=== PATIENT | female | born 1975 | race American Indian/Alaskan Native ===

== ENCOUNTER 2019-01-16 17:38 | Emergency (ER) | payer OTHER ==
--- NOTE | 2019-01-16 17:51 | Emergency Department Report ---
Blank Doc - Documentation Documentation: 43 Y/O FEMALE PRESENTS WITH SUDDEN ONSET OF MODERATE SEVERE RIGHT LOWER LEG PA IN. NO EDEMA OR TRAUMA. NO FEVER. NO CHEST PAIN. + SOMKER PLAN ACC AND EVALUATE FOR LABS AND US NEEDS.
--- NOTE | 2019-01-16 18:59 | Vascular Lab Report ---
PROCEDURE: VL VENOUS DUPLEX LE RT TECHNIQUE: Duplex Doppler sonography of the right . Garces scale imaging with and without compression, spectral waveform analysis with and without augmentation, and color flow Doppler were employed. HISTORY: RT.LEG PAIN COMPARISONS: None FINDINGS: Real-time ultrasound of the right leg was performed using grayscale and color Doppler image s. These images demonstrate no evidence of deep venous thrombus in the right common femoral vein, superf icial femoral vein, popliteal vein or posterior tibial vein. IMPRESSION: No DVT in right leg This document is electronically signed by Michael Crisostomo MD., January 16 2019 06:57:27 PM ET
[2019-01-16] MEDS ORDERED: NORCO 5/325 PO ONE (20:44)
--- NOTE | 2019-01-16 21:32 | Emergency Department Report ---
ED Lower Extremity HPI - General Chief Complaint: Extremity Injury, Lower Stated Complaint: R LEG PAIN Time Seen by Provider: 01/16/19 17:48 Source: patient Mode of arrival: Wheelchair Limitations: No Limitations - History of Present Illness Initial Comments: pt is a 43 y/o aaf who presents for right calf pain s/p fall at home pain is 5/10 sharp shooting radiating from calf to right foot, pain is exacerbated by palpation and ambulation. MD Complaint: other (right leg pain s/p fall yesterday ) Onset/Timin -: days(s) Injury: Leg: Right (posterior calf ) Type of Injury: blunt, hyperextension Place: home Severity: moderate Severity scale (0 -10): 6 Improves With: nothing Worsens With: nothing Context: fall Associated Symptoms: snap/pop sensation, unable to bear weight - Related Data Previous Rx's Medication Instructions Recorded Last Taken Type Cyclobenzaprine [Flexeril] 10 mg PO TID PRN #30 tablet 01/16/19 Unknown Rx Menthol/Camphor [[place] 1 applicatio TP QID PRN #1 tube 01/16/19 Unknown Rx Ointment] Naproxen [Naprosyn] 500 mg PO BID PRN #30 tablet 01/16/19 Unknown Rx Allergies Allergy/AdvReac Type Severity Reaction Status Date / Time No Known Allergies Allergy Unverified 01/16/19 17:40 ED Review of Systems ROS: Stated complaint: R LEG PAIN Other details as noted in HPI Constitutional: denies: chills, fever Eyes: denies: eye pain, eye discharge, vision change ENT: denies: ear pain, throat pain Respiratory: denies: cough, shortness of breath, wheezing Cardiovascular: denies: chest pain, palpitations Endocrine: no symptoms reported Gastrointestinal: denies: abdominal pain, nausea, diarrhea Genitourinary: denies: urgency, dysuria, discharge Musculoskeletal: other (right posterior calf pain ). denies: back pain, joint swelling, arthralgia Skin: denies: rash, lesions Neurological: denies: headache, weakness, paresthesias Psychiatric: denies: anxiety, depression Hematological/Lymphatic: denies: easy bleeding, easy bruising ED Past Medical Hx - Past Medical History Previous Medical History?: No - Surgical History Past Surgical History?: No - Social History Smoking Status: Current Every Day Smoker Substance Use Type: Alcohol - Medications Home Medications: Home Medications Medication Instructions Recorded Confirmed Last Taken Type Cyclobenzaprine [Flexeril] 10 mg PO TID PRN #30 tablet 01/16/19 Unknown Rx Menthol/Camphor [[place] 1 applicatio TP QID PRN #1 tube 01/16/19 Unknown Rx Ointment] Naproxen [Naprosyn] 500 mg PO BID PRN #30 tablet 01/16/19 Unknown Rx ED Physical Exam - General Limitations: No Limitations General appearance: alert, in no apparent distress - Head Head exam: Present: atraumatic, normocephalic - Eye Eye exam: Present: normal appearance, PERRL, EOMI Pupils: Present: normal accommodation - ENT ENT exam: Present: mucous membranes moist - Neck Neck exam: Present: normal inspection - Respiratory Respiratory exam: Present: normal lung sounds bilaterally. Absent: respiratory distress, wheezes, stridor - Cardiovascular Cardiovascular Exam: Present: regular rate, normal rhythm, normal heart sounds. Absent: systolic murmur, diastolic murmur, rubs, gallop - GI/Abdominal GI/Abdominal exam: Present: soft. Absent: distended, tenderness, bruit, hernia - Rectal Rectal exam: Present: deferred - Extremities Exam Extremities exam: Present: normal inspection, full ROM, tenderness, normal capillary refill, calf tenderness. Absent: pedal edema, joint swelling - Expanded Lower Extremity Exam Right Lower Leg exam: Present: full ROM, tenderness (right lateral calf pain ), erythema. Absent: swelling, abrasion, laceration, ecchymosis, deformity, crepidus, dislocation, palpable cord, Delvin's sign Ankle exam: Present: full ROM, tenderness Foot/Toe exam: Present: full ROM. Absent: tenderness Neuro vascular tendon exam: Absent: pulse deficit, motor deficit, sensory deficit, tendon deficit Gait: Positive: observed and limited by pain - Back Exam Back exam: Present: normal inspection, full ROM. Absent: tenderness, CVA tenderness (R), CVA tenderness (L), muscle spasm, paraspinal tenderness, vertebral tenderness, rash noted - Neurological Exam Neurological exam: Present: alert, oriented X3, CN II-XII intact, normal gait, reflexes normal. Absent: motor sensory deficit - Psychiatric Psychiatric exam: Present: normal affect, normal mood - Skin Skin exam: Present: warm, dry, intact, normal color. Absent: rash ED Course Vital Signs 01/16/19 17:48 Temperature 98.5 F Pulse Rate 91 H Respiratory 18 Rate Blood Pressure 127/77 O2 Sat by Pulse 99 Oximetry ED Lower Extremity MDM - Radiology Data Radiology results: report reviewed, image reviewed Patient: FATUMA SUAREZ MR#: [id number] : 1975 Acct:[id number] Age/Sex: 43 / F ADM Date: 01/16/19 Loc: ED Attending Dr: Ordering Physician: BHARATH RUBIO Date of Service: 01/16/19 Procedure(s): VL venous duplex LE RT Accession Number(s): [id number] cc: BHARATH RUBIO PROCEDURE: VL VENOUS DUPLEX LE RT TECHNIQUE: Duplex Doppler sonography of the right . Garces scale imaging with and without compression, spectral waveform analysis with and without augmentation, and color flow Doppler were employed. HISTORY: RT.LEG PAIN COMPARISONS: None FINDINGS: Real-time ultrasound of the right leg was performed using grayscale and color Doppler images. These images demonstrate no evidence of deep venous thrombus in the right common femoral vein, superficial femoral vein, popliteal vein or posterior tibial vein. IMPRESSION: No DVT in right leg This document is electronically signed by Michael Crisostomo MD., January 16 2019 06:57:27 PM ET Transcribed By: ZOE Dictated By: MICHAEL CRISOSTOMO MD Electronically Authenticated By: MICHAEL CRISOSTOMO MD Signed Date/Time: 01/16/191858 DD/ 26 TD/TT: 01/16/191827 - Medical Decision Making US normal , neg homans sign, distal pulses intact , plan: crutches nsaids, muscle relaxants , analgesic balm, follow up pcp in 2-3 days , pt verbalized a greement and understanding of discharge plan, pt demonstrated safe use of crutches. Critical care attestation.: If time is entered above; I have spent that time in minutes in the direct care of this critically ill patient, excluding procedure time. ED Disposition Clinical Impression: Strain of calf muscle Qualifiers: Encounter type: initial encounter Laterality: right Qualified Code(s): S86.811A - Strain of other muscle(s) and tendon(s) at lower leg level, right leg, initial encounter Disposition: TO HOME OR SELFCARE Is pt being admited?: No Does the pt Need Aspirin: No Condition: Stable Instructions: Muscle Strain (ED) Prescriptions: Cyclobenzaprine [Flexeril] 10 mg PO TID PRN #30 tablet PRN Reason: Muscle Spasm Naproxen [Naprosyn] 500 mg PO BID PRN #30 tablet PRN Reason: pain Menthol/Camphor [[place] Ointment] 1 applicatio TP QID PRN #1 tube PRN Reason: pain Referrals: JOHNY ASCENCIO MD [Emergency Provider] - 3-5 Days Forms: Work/School Release Form(ED) Time of Disposition: 21:55
[2019-01-16 23:15] VITALS: BP 126/75
== END 2019-01-16 21:52 | disposition home or self-care (01) ==
LOC: ED 17:38
DX: S86.811A Strain of other muscle(s) and tendon(s) at lower leg level, right leg, initial encounter (principal); F17.200 Nicotine dependence, unspecified, uncomplicated; W18.30XA Fall on same level, unspecified, initial encounter; Y93.89 Activity, other specified; Y92.019 Unspecified place in single-family (private) house as the place of occurrence of the external cause; Y99.8 Other external cause status

== ENCOUNTER 2020-06-25 13:58 | Emergency (ER) | payer BC, OTHER ==
--- NOTE | 2020-06-25 14:24 | Event Note ---
ED Screening Note ED Screening Note: right lower abd pain began 5 days +nausea no v/d normal bowel movement this morning no dyuria no vaginal bleeding or discharge hx of myometecomy pMhx none no allergies to meds LNMP: 05/30/2020 This initial assessment/diagnostic orders/clinical plan/treatment(s) is/are subject to change based on patients health status, clinical progression and re- assessment by fellow clinical providers in the ED. Further treatment and workup at subsequent clinical providers discretion. Patient/guardian urged not to elope from the ED as their condition may be serious if not clinically assessed and managed. Initial orders include: labs, UA, urine preg
[2020-06-25 14:28] VITALS: BP 130/56
[2020-06-25 15:07] LABS: Mean Corpuscular HGB Conc 28 % (30-34); Red Blood Count 4.18 M/mm3 (3.65-5.03)
[2020-06-25 15:16] LABS: Hematocrit 22.5 % (30.3-42.9); Hemoglobin 6.2 gm/dl (10.1-14.3); Mean Corpuscular Volume 54 fl (79-97); Red Cell Distribution Width 22.7 % (13.2-15.2)
[2020-06-25] MEDS ORDERED: ONDANSETRON 4 MG/2 ML INJ IV ONE (15:17)
[2020-06-25] MEDS ORDERED: MORPHINE 4 MG/1 ML INJ IV ONE (15:17)
[2020-06-25] MEDS ORDERED: SODIUM CHLORIDE 0.9% 1000 ML 1,000 ML IV ONE (15:17)
[2020-06-25 15:22] LABS: Alanine Aminotransferase 13 units/L (7-56); Albumin 4.2 g/dL (3.9-5); Blood Urea Nitrogen 6 mg/dL (7-17); Calcium 9.3 mg/dL (8.4-10.2); Hemolysis Index 0
[2020-06-25 15:30] LABS: BUN/Creatinine Ratio 12
--- NOTE | 2020-06-25 15:38 | Emergency Department Report ---
ED Abdominal Pain HPI - General Chief Complaint: Abdominal Pain Stated Complaint: LOWER ABD Time Seen by Provider: 06/25/20 14:23 Source: patient Mode of arrival: Ambulatory Limitations: No Limitations - History of Present Illness Initial Comments: This is a 44-year-old female nontoxic, well nourished in appearance, no acute signs of distress presents to the ED with c/o of nausea and right lower abdominal pain several days. Patient denies any vomiting. Patient describes abdominal pain as cramping and aching with level of 8/10. Patient denies chest pain, short of breath, fever, hemoptysis, blood in stool, chills, headache, stiff neck, numbness or tingling. Patient denies any diarrhea or constipation. Denies any blood in stool. Patient denies any recent travels. Patient denies any allergies. MD Complaint: abdominal pain -: days(s) Location: RLQ Radiation: none Migration to: no migration Severity: moderate Severity scale (0 -10): 8 Quality: cramping, aching Consistency: constant Improves With: nothing Worsens With: nothing Associated Symptoms: nausea. denies: vomiting, diarrhea, fever, chills, constipation, dysuria, hematemesis, hematochezia, melena, hematuria, anorexia, syncope - Related Data Previous Rx's Medication Instructions Recorded Last Taken Type Cyclobenzaprine [Flexeril] 10 mg PO TID PRN #30 tablet 01/16/19 Unknown Rx Menthol/Camphor [[place] 1 applicatio TP QID PRN #1 tube 01/16/19 Unknown Rx Ointment] Naproxen [Naprosyn] 500 mg PO BID PRN #30 tablet 01/16/19 Unknown Rx Ondansetron [Zofran Odt] 4 mg PO Q8HR PRN #12 tab.rapdis 06/25/20 Unknown Rx Allergies Allergy/AdvReac Type Severity Reaction Status Date / Time No Known Allergies Allergy Unverified 01/16/19 17:40 ED Review of Systems ROS: Stated complaint: LOWER ABD Other details as noted in HPI Comment: All other systems reviewed and negative Constitutional: denies: chills, fever Eyes: denies: eye pain, eye discharge, vision change ENT: denies: ear pain, throat pain Respiratory: denies: cough, shortness of breath, wheezing Cardiovascular: denies: chest pain, palpitations Endocrine: no symptoms reported Gastrointestinal: abdominal pain, nausea. denies: vomiting, diarrhea, constipation, hematemesis, melena, hematochezia Genitourinary: denies: urgency, dysuria, discharge Musculoskeletal: denies: back pain, joint swelling, arthralgia Skin: denies: rash, lesions Neurological: denies: headache, weakness, paresthesias Psychiatric: denies: anxiety, depression Hematological/Lymphatic: denies: easy bleeding, easy bruising ED Past Medical Hx - Past Medical History Previous Medical History?: No - Surgical History Past Surgical History?: No - Social History Smoking Status: Never Smoker Substance Use Type: None - Medications Home Medications: Home Medications Medication Instructions Recorded Confirmed Last Taken Type Cyclobenzaprine [Flexeril] 10 mg PO TID PRN #30 tablet 01/16/19 Unknown Rx Menthol/Camphor [[place] 1 applicatio TP QID PRN #1 tube 01/16/19 Unknown Rx Ointment] Naproxen [Naprosyn] 500 mg PO BID PRN #30 tablet 01/16/19 Unknown Rx Ondansetron [Zofran Odt] 4 mg PO Q8HR PRN #12 tab.rapdis 06/25/20 Unknown Rx ED Physical Exam - General Limitations: No Limitations General appearance: alert, in no apparent distress - Head Head exam: Present: atraumatic, normocephalic - Eye Eye exam: Present: normal appearance - Neck Neck exam: Present: normal inspection, full ROM. Absent: tenderness, meningismus, lymphadenopathy - Respiratory Respiratory exam: Present: normal lung sounds bilaterally. Absent: respiratory distress, wheezes, rales, rhonchi, stridor, chest wall tenderness, accessory muscle use, decreased breath sounds, prolonged expiratory - Cardiovascular Cardiovascular Exam: Present: regular rate, normal rhythm, normal heart sounds. Absent: bradycardia, tachycardia, irregular rhythm, systolic murmur, diastolic murmur, rubs, gallop - GI/Abdominal GI/Abdominal exam: Present: soft, tenderness (RLQ), normal bowel sounds. Absent: distended, guarding, rebound, rigid, diminished bowel sounds - Extremities Exam Extremities exam: Present: normal inspection, full ROM - Back Exam Back exam: Present: normal inspection, full ROM. Absent: tenderness, CVA tenderness (R), CVA tenderness (L), muscle spasm, paraspinal tenderness, vertebral tenderness, rash noted - Neurological Exam Neurological exam: Present: alert, oriented X3, normal gait - Psychiatric Psychiatric exam: Present: normal affect, normal mood - Skin Skin exam: Present: warm, dry, intact, normal color. Absent: rash ED Course Vital Signs 06/25/20 14:13 Pulse Rate 81 Respiratory 18 Rate Blood Pressure 130/56 O2 Sat by Pulse 100 Oximetry Vital Signs 06/25/20 06/25/20 14:13 17:27 Temperature 98.6 F Pulse Rate 81 Respiratory 18 Rate Blood Pressure 130/56 O2 Sat by Pulse 100 Oximetry - Reevaluation(s) Reevaluation #1: 06/25/20 15:39 Patient is speaking in full sentences with no signs of distress noted. ED Medical Decision Making - Lab Data Result diagrams: 06/25/20 14:48 06/25/20 14:48 Lab Results 06/25/20 06/25/20 06/25/20 Range/Units 14:48 14:48 15:16 WBC 4.9 (4.5-11.0) K/mm3 RBC 4.18 (3.65-5.03) M/mm3 Hgb 6.2 L (10.1-14.3) gm/dl Hct 22.5 L (30.3-42.9) % MCV 54 L (79-97) fl MCH 15 L (28-32) pg MCHC 28 L (30-34) % RDW 22.7 H (13.2-15.2) % Plt Count 161 (140-440) K/mm3 Add Manual Diff Complete Total Counted 100 Seg Neuts % (Manual) 60.0 (40.0-70.0) % Band Neutrophils % 2.0 % Lymphocytes % (Manual) 32.0 (13.4-35.0) % Reactive Lymphs % (Man) 0 % Monocytes % (Manual) 5.0 (0.0-7.3) % Eosinophils % (Manual) 1.0 (0.0-4.3) % Basophils % (Manual) 0 (0.0-1.8) % Metamyelocytes % 0 % Myelocytes % 0 % Promyelocytes % 0 % Blast Cells % 0 % Nucleated RBC % Not Reportable Seg Neutrophils # Man 2.9 (1.8-7.7) K/mm3 Band Neutrophils # 0.1 K/mm3 Lymphocytes # (Manual) 1.6 (1.2-5.4) K/mm3 Abs React Lymphs (Man) 0.0 K/mm3 Monocytes # (Manual) 0.2 (0.0-0.8) K/mm3 Eosinophils # (Manual) 0.0 (0.0-0.4) K/mm3 Basophils # (Manual) 0.0 (0.0-0.1) K/mm3 Metamyelocytes # 0.0 K/mm3 Myelocytes # 0.0 K/mm3 Promyelocytes # 0.0 K/mm3 Blast Cells # 0.0 K/mm3 WBC Morphology Not Reportable Hypersegmented Neuts Not Reportable Hyposegmented Neuts Not Reportable Hypogranular Neuts Not Reportable Smudge Cells Not Reportable Toxic Granulation Not Reportable Toxic Vacuolation Not Reportable Dohle Bodies Not Reportable Pelger-Huet Anomaly Not Reportable Oswaldo Rods Not Reportable Platelet Estimate Consistent w auto Clumped Platelets Not Reportable Plt Clumps, EDTA Not Reportable Large Platelets Not Reportable Giant Platelets Not Reportable Platelet Satelliting Not Reportable Plt Morphology Comment Not Reportable RBC Morphology Not Reportable Dimorphic RBCs Not Reportable Polychromasia Not Reportable Hypochromasia 3+ Poikilocytosis Not Reportable Anisocytosis 1+ Microcytosis 3+ Macrocytosis Not Reportable Spherocytes Not Reportable Pappenheimer Bodies Not Reportable Sickle Cells Not Reportable Target Cells Not Reportable Tear Drop Cells Rare Ovalocytes Rare Helmet Cells Not Reportable Trevino-Glassmanor Bodies Not Reportable Elmer Rings Not Reportable Raimundo Cells Not Reportable Bite Cells Not Reportable Crenated Cell Not Reportable Elliptocytes Not Reportable Acanthocytes (Spur) Not Reportable Rouleaux Not Reportable Hemoglobin C Crystals Not Reportable Schistocytes Not Reportable Malaria parasites Not Reportable Dillon Bodies Not Reportable Hem Pathologist Commnt No Sodium 139 (137-145) mmol/L Potassium 4.0 (3.6-5.0) mmol/L Chloride 105.8 (98-107) mmol/L Carbon Dioxide 24 (22-30) mmol/L Anion Gap 13 mmol/L BUN 6 L (7-17) mg/dL Creatinine 0.5 L (0.6-1.2) mg/dL Estimated GFR > 60 ml/min BUN/Creatinine Ratio 12 % Glucose 95 (65-100) mg/dL Calcium 9.3 (8.4-10.2) mg/dL Total Bilirubin 0.40 (0.1-1.2) mg/dL AST 15 (5-40) units/L ALT 13 (7-56) units/L Alkaline Phosphatase 70 (35-129) units/L Total Protein 7.8 (6.3-8.2) g/dL Albumin 4.2 (3.9-5) g/dL Albumin/Globulin Ratio 1.2 % Lipase 25 (13-60) units/L Urine Color Yellow (Yellow) Urine Turbidity Slightly-cloudy (Clear) Urine pH 7.0 (5.0-7.0) Ur Specific [place] 1.018 (1.003-1.030) Urine Protein <15 mg/dl (Negative) mg/dL Urine Glucose (UA) Neg (Negative) mg/dL Urine Ketones Neg (Negative) mg/dL Urine Blood Neg (Negative) Urine Nitrite Neg (Negative) Urine Bilirubin Neg (Negative) Urine Urobilinogen 2.0 (<2.0) mg/dL Ur Leukocyte Esterase Neg (Negative) Urine WBC (Auto) 1.0 (0.0-6.0) /HPF Urine RBC (Auto) 3.0 (0.0-6.0) /HPF U Epithel Cells (Auto) 18.0 H (0-13.0) /HPF Urine Mucus Few /HPF Urine HCG, Qual Negative (Negative) - Radiology Data Referring Physician: BRANDY CLARK Patient Name: FATUMA SUAREZ Date of : 1975 Sex: Female Report Date: 2020-06-25 Report Status: Finalized [facility] [address] [place] [address] Cat Scan Report Signed Patient: FATUMA SUAREZ MR#: [id number] : 1975 Acct:[id number] Age/Sex: 44 / F ADM Date: 06/25/20 Loc: ED Attending Dr: Ordering Physician: BRANDY CLARK NP Date of Service: 06/25/20 Procedure(s): CT abdomen pelvis w con Accession Number(s): [id number] cc: BRANDY CLARK NP CT ABDOMEN AND PELVIS WITH CONTRAST INDICATION / CLINICAL INFORMATION: Right lower quadrant pain. TECHNIQUE: Axial CT images were obtained through the abdomen and pelvis after IV contrast. All CT scans at this location are performed using CT dose reduction for ALARA by means of automated exposure control. COMPARISON: None available. FINDINGS: LOWER CHEST: Unremarkable LIVER: Suspected hepatic steatosis. GALLBLADDER/BILIARY TREE: Unremarkable PANCREAS: Unremarkable SPLEEN: Unremarkable ADRENALS: Unremarkable KIDNEYS / URETER: Unremarkable URINARY BLADDER: Bladder is partially decompressed, though grossly unremarkable. REPRODUCTIVE ORGANS: Uterus is markedly enlarged with multiple calcified and noncalcified myometrial masses, compatible with fibroids. There is a small benign right adnexal cyst. STOMACH / SMALL BOWEL: Stomach and small bowel are normal in caliber. No evidence of bowel inflammation. COLON: The colon is unremarkable. The appendix is normal in caliber. LYMPH NODES: No significant adenopathy. VASCULATURE: No significant abnormality. OTHER: No free air, free fluid, or focal fluid collection is identified. SKELETAL SYSTEM: No acute osseous findings. IMPRESSION: 1. No acute abnormality of the abdomen or pelvis. Normal appendix. 2. Fibroid uterus. 3. Other chronic, incidental findings as above. Signer Name: Sheila Starr MD Signed: 06/25/2020 5:05 PM Workstation Name: [id number] Transcribed By: STEVE Dictated By: SHEILA JOHANSEN MD Electronically Authenticated By: SHEILA JOHANSEN MD Signed Date/Time: 06/25/201704 DD/ 00 TD/TT: - Medical Decision Making This is a 44-year-old female that presents with abdominal pain. Patient is stable and was examined by me. Labs obtained. UA obtained. CT of abdomen obtained and dictated by the radiologist. Patient is notified of the report with no questions noted by the patient. Vital signs are stable prior to discharge. Patient received medical treatment in the ED which patient stated symptoms has resovled and subsided. Was instructed note to operate any machinery due to possible drowsiness and stated someone will drive the patient home. A by mouth challenge has been obtained and patient tolerated well with no nausea vomiting. Patient was also instructed to Follow-up with a primary care doctor in 3-5 days or if symptoms worsen and continue return to emergency room as soon as possible. At time of discharge, the patient does not seem toxic or ill in appearance. No acute signs of distress noted. Patient agrees to discharge treatment plan of care. No further questions noted by the patient. Critical care attestation.: If time is entered above; I have spent that time in minutes in the direct care of this critically ill patient, excluding procedure time. ED Disposition Clinical Impression: Nausea Abdominal pain Qualifiers: Abdominal location: right lower quadrant Qualified Code(s): R10.31 - Right lower quadrant pain Disposition: DC- TO HOME OR SELFCARE Is pt being admited?: No Does the pt Need Aspirin: No Condition: Stable Instructions: Nausea, Adult, Abdominal Pain, Adult, Abdominal Pain (ED) Additional Instructions: Follow-up with a primary care and manager underwriting doctor in 3-5 days or if symptoms worsen and continue return to emergency room as soon as possible. Prescriptions: Ondansetron [Zofran Odt] 4 mg PO Q8HR PRN #12 tab.rapdis PRN Reason: Nausea Referrals: PRIMARY MD ANNA MARIE [Referring] - 3-5 Days LUPE VIEIRA MD [Staff Physician] - 3-5 Days [facility] [Provider Group] - 3-5 Days Forms: Work/School Release Form(ED)
[2020-06-25 16:04] LABS: Bilirubin,Urine NEG (Negative); Blood,Urine NEG (Negative); Color,Urine Yellow (Yellow); Mucus,Urine FEW /HPF; Protein,Urine <15 mg/dL mg/dL (Negative)
[2020-06-25 16:06] LABS: HCG Qualitative,Urine Negative (Negative)
[2020-06-25 16:39] LABS: Anisocytosis 1+; Band Neutrophils # (Manual) 0.1 K/mm3; Basophils % (Manual) 0 % (0.0-1.8); Hypochromasia 3+; Total Cells Counted 100
[2020-06-25 16:40] LABS: Ovalocytes Rare; Platelet Estimate Consistent w Auto; Tear Drop Cells Rare
[2020-06-25 16:43] LABS: Platelet Count 161 K/mm3 (140-440)
--- NOTE | 2020-06-25 17:10 | Cat Scan Report ---
CT ABDOMEN AND PELVIS WITH CONTRAST INDICATION / CLINICAL INFORMATION: Right lower quadrant pain. TECHNIQUE: Axial CT images were obtained through the abdomen and pelvis after IV contrast. All CT sc ans at this location are performed using CT dose reduction for ALARA by means of automated exposure c ontrol. COMPARISON: None available. FINDINGS: LOWER CHEST: Unremarkable LIVER: Suspected hepatic steatosis. GALLBLADDER/BILIARY TREE: Unremarkable PANCREAS: Unremarkable SPLEEN: Unremarkable ADRENALS: Unremarkable KIDNEYS / URETER: Unremarkable URINARY BLADDER: Bladder is partially decompressed, though grossly unremarkable. REPRODUCTIVE ORGANS: Uterus is markedly enlarged with multiple calcified and noncalcified myometrial masses, compatible with fibroids. There is a small benign right adnexal cyst. STOMACH / SMALL BOWEL: Stomach and small bowel are normal in caliber. No evidence of bowel inflammati on. COLON: The colon is unremarkable. The appendix is normal in caliber. LYMPH NODES: No significant adenopathy. VASCULATURE: No significant abnormality. OTHER: No free air, free fluid, or focal fluid collection is identified. SKELETAL SYSTEM: No acute osseous findings. IMPRESSION: 1. No acute abnormality of the abdomen or pelvis. Normal appendix. 2. Fibroid uterus. 3. Other chronic, incidental findings as above. Signer Name: Subhash Starr MD Signed: 06/25/2020 5:05 PM Workstation Name: [id number]
== END 2020-06-25 17:36 | disposition home or self-care (01) ==
LOC: ED 13:58
DX: R10.31 Right lower quadrant pain (principal); R11.0 Nausea; Z79.899 Other long term (current) drug therapy
CPT/HCPCS: 36415; 74177; 80053; 81001; 81025; 83690; 85007; 85025; 96361; 96374; 96375; 99284; J2270; J2405; J7030; Q9967